=== PATIENT | female | born 1990 | race Caucasian/White ===

== ENCOUNTER → 2021-06-24 | Outpatient (CLI) | payer MEDICAID ==
[~2021-06-24] MED LIST: ANTIVERT 25MG T25 MG PO; ASPIRIN CHEWABL81 MG PO; BENTYL 20MG TAB20 MG PO; CEPACOL SORE T1 EACH MM; EUTHYROX88 MCG PO; HYDROCHLOROTHIA25 MG PO; IBUPROFEN600 MG PO; KEFLEX CAP 500500 MG PO; MAALOX MAXIMUM355 ML PO; MACROBID 100 M100 MG PO; PREDNISONE20 MG PO; PRINIVIL10 MG PO; PRINIVIL20 MG PO; SYNTHROID200 MCG PO; ZOFRAN ODT 4 MG4 MG PO
[2021-06-24 15:31] LABS: HEMOGLOBIN 14.8 gm/dl (12.3-15.3); RED BLOOD COUNT 5.13 M/UL (4.00-5.10); WHITE BLOOD COUNT 14.8 K/UL (4.5-11.0)
[2021-06-24 15:47] LABS: BUN/CREATININE RATIO 24 (0-10)
== END ==
LOC: CT 14:34
PROVIDERS: Nurse Practitioner Family
DX: R10.9 Unspecified abdominal pain (principal); E03.9 Hypothyroidism, unspecified
CPT/HCPCS: 80053; 81001; 84439; 84443; 85025; 86376; 87086; Q9967

== ENCOUNTER → 2021-07-02 | Outpatient (CLI) | payer MEDICAID | LOC: KOH-I 06-24 08:00 | DX: R10.11 Right upper quadrant pain (principal); M54.2 Cervicalgia; K76.0 Fatty (change of) liver, not elsewhere classified; N28.89 Other specified disorders of kidney and ureter | CPT/HCPCS: 76536; 76700 ==

== ENCOUNTER → 2021-10-09 | Outpatient (CLI) | payer OTHER | LOC: KOH-I 11:30 | DX: E03.9 Hypothyroidism, unspecified (principal) | CPT/HCPCS: 76536 ==